=== PATIENT | female | born 1955 | race Caucasian/White ===

== ENCOUNTER 2016-07-14 05:39 | Inpatient (IN) | payer OTHER ==
[~2016-07-14] VITALS: Ht 154.9 cm; Wt 65.7 kg
[~2016-07-14 05:39] MED LIST: CELEBREX100 MG PO; DETROL LA4 MG PO; DORYX50 MG PO; TENORMIN25 MG PO; ULTRAM50 MG PO; ZESTRIL2.5 MG PO; ZOCOR10 MG PO
[2016-07-14 06:12] VITALS: BP 125/64
[2016-07-14] MEDS ORDERED: OMEPRAZOLE40 M1 PO (06:20)
[2016-07-14 14:52] VITALS: BP 123/63
[2016-07-14 20:03] VITALS: BP 128/60
[2016-07-14 23:40] VITALS: BP 106/53
[2016-07-15 04:07] VITALS: BP 110/70
[2016-07-15 07:57] VITALS: BP 112/54
[2016-07-15 11:51] VITALS: BP 118/58
[2016-07-15 15:58] VITALS: BP 113/55
[2016-07-15 19:59] VITALS: BP 135/59
[2016-07-15 23:54] VITALS: BP 102/51
[2016-07-16 07:43] VITALS: BP 117/54
[2016-07-16 12:35] LABS: ADD MIUA? NO; BILIRUBIN NEGATIVE; BLOOD NEGATIVE; COLOR YELLOW ((YELLOW)); GLUCOSE (STRIP) NEGATIVE; KETONES 40; LEUKOCYTES NEGATIVE; NITRITE NEGATIVE; PROTEIN (STRIP) TRACE; UROBILINOGEN 0.2 MG/DL (0.2-1.0)
[2016-07-16 15:05] VITALS: BP 104/55
[2016-07-17 00:45] VITALS: BP 109/53
[2016-07-17 07:36] VITALS: BP 111/57
[2016-07-17 11:11] VITALS: BP 104/59
[2016-07-17] MEDS ORDERED: HYDROCODON-ACE1 EAC7 PO (11:33)
[2016-07-17] MEDS ORDERED: CYCLOBENZAPRINE10 MG PO (11:33)
[2016-07-17] MEDS ORDERED: SENOKOT S,PE1 TABLET PO (14:18)
[2016-07-17] MEDS ORDERED: DITROPAN5 MG PO (14:18)
== END 2016-07-17 13:58 | DRG 460 ==
LOC: 2SOUTH 05:39 → 3EAST 05:39 → 2SOUTH 08:37 → SDC 14:06 → EDSTATUS 14:06 → 2SOUTH 14:11 → 3EAST 14:34 → 2SOUTH 16:16 → 3EAST 07-17 13:58
PROVIDERS: Neurological Surgery
DX: M51.16 Intervertebral disc disorders with radiculopathy, lumbar region (principal); M48.06 Spinal stenosis, lumbar region; M47.26 Other spondylosis with radiculopathy, lumbar region; G97.41 Accidental puncture or laceration of dura during a procedure; Y65.8 Other specified misadventures during surgical and medical care; G89.18 Other acute postprocedural pain; I10 Essential (primary) hypertension; E78.00 Pure hypercholesterolemia, unspecified; M19.90 Unspecified osteoarthritis, unspecified site; G47.30 Sleep apnea, unspecified; Z99.81 Dependence on supplemental oxygen; K21.9 Gastro-esophageal reflux disease without esophagitis; K58.9 Irritable bowel syndrome, unspecified; Z96.643 Presence of artificial hip joint, bilateral; Z87.891 Personal history of nicotine dependence
CPT/HCPCS: 72020; 76000; 81003; 86850; 86900; 86901; 86920; 97530 GP; C1713; J0690; J1100; J1170; J2250; J2270; J2405; J2704; J3010; J3370; J3480; P9045; S0020

== ENCOUNTER 2016-07-17 12:33 | Inpatient (IN) | payer OTHER ==
[~2016-07-17] VITALS: Ht 154.9 cm; Wt 68.1 kg
[~2016-07-17 12:33] MED LIST changes: +CYCLOBENZAPRINE10 MG PO; +HYDROCODON-ACE1 EAC7 PO; +OMEPRAZOLE40 M1 PO
[2016-07-17] MEDS ORDERED: DITROPAN5 MG PO (14:18)
[2016-07-17] MEDS ORDERED: SENOKOT S,PE1 TABLET PO (14:18)
[2016-07-17 14:44] VITALS: BP 115/58
[2016-07-18] VITALS (11 sets, daily range): BP systolic 100–119; BP diastolic 50–70
[2016-07-18 06:15] LABS: ALKALINE PHOSPHATASE 114 IU/L (3-129); ANION GAP 10 MEQ/L (2-14); CHLORIDE 99 MEQ/L (99-109); GFR ESTIMATE (CALCULATED) > 59 mL/min/; GLUCOSE 104 mg/dL (70-99); SAMPLE HEMOLYSIS CHECK 0; SAMPLE ICTERIC CHECK 0; SAMPLE LIPEMIA CHECK 0; SODIUM 137 MEQ/L (136-147); TOTAL BILIRUBIN 0.6 MG/DL (0.0-1.0); UREA NITROGEN (BUN) 9 mg/dL (9-23)
[2016-07-18 06:21] LABS: HEMATOCRIT 22.1 % (36.0-46.0); MCH 26.6 PG (29.0-34.0); MCHC 30.3 G/DL (30.0-36.0); MCV 87.7 FL (83-99); MEAN PLAT.VOLUME 10.2 uM^3 (9.5-12.4); PLATELET COUNT 409 K/uL (156-360); RBC DIS.WIDTH-CV 13.2 % (11.8-14.6); RBC DIS.WIDTH-SD 42.1 % (39-53); RED BLOOD COUNT 2.52 M/uL (3.80-5.20); WHITE BLOOD COUNT 5.9 K/uL (4.1-10.2)
[2016-07-19 05:34] VITALS: BP 142/69
[2016-07-19 05:55] LABS: HEMATOCRIT 29.2 % (36.0-46.0); MCH 27.3 PG (29.0-34.0); MCHC 32.2 G/DL (30.0-36.0); MCV 84.9 FL (83-99); PLATELET COUNT 399 K/uL (156-360); RBC DIS.WIDTH-CV 13.8 % (11.8-14.6); WHITE BLOOD COUNT 6.2 K/uL (4.1-10.2)
[2016-07-19 05:56] LABS: RED BLOOD COUNT 3.44 M/uL (3.80-5.20)
[2016-07-19 15:20] VITALS: BP 115/59
[2016-07-20 05:46] VITALS: BP 126/85
[2016-07-20 09:30] VITALS: BP 124/63
[2016-07-20 15:37] VITALS: BP 147/73
[2016-07-21 06:15] VITALS: BP 122/58
[2016-07-21 15:13] VITALS: BP 130/60
[2016-07-22 05:40] VITALS: BP 165/78
[2016-07-22 06:02] VITALS: BP 134/80
[2016-07-22 15:19] VITALS: BP 107/57
[2016-07-23 05:30] VITALS: BP 118/61
[2016-07-23 05:59] LABS: BASOPHIL COUNT 0.1 K/uL (0-0.1); EOSINOPHIL (%) 18.2 % (0-5); EOSINOPHIL COUNT 1.3 K/uL (0-0.3); HEMATOCRIT 30.3 % (36.0-46.0); IMMATURE GRANULOCYTE (%) 1.9 % (0.0-0.7); IMMATURE GRANULOCYTE COUNT 0.1 K/uL; INSTRUMENT ABS NEUTROPHIL CT 3.3 K/uL; LYMPHOCYTE COUNT 1.8 K/uL (1.0-2.8); MCH 27.2 PG (29.0-34.0); MCHC 31.4 G/DL (30.0-36.0); MCV 86.8 FL (83-99); MEAN PLAT.VOLUME 10.4 uM^3 (9.5-12.4); MONOCYTE (%) 9.5 % (3-12); MONOCYTE COUNT 0.7 K/uL (0-0.8); NEUTROPHIL (%) 45.1 % (45-76); NEUTROPHIL COUNT 3.3 K/uL (1.8-6.4); PLATELET COUNT 424 K/uL (156-360); RBC DIS.WIDTH-CV 14.1 % (11.8-14.6); RBC DIS.WIDTH-SD 44.7 % (39-53); RED BLOOD COUNT 3.49 M/uL (3.80-5.20); WHITE BLOOD COUNT 7.4 K/uL (4.1-10.2)
[2016-07-23 06:22] LABS: ALKALINE PHOSPHATASE 100 IU/L (3-129); ANION GAP 10 MEQ/L (2-14); CHLORIDE 97 MEQ/L (99-109); GFR ESTIMATE (CALCULATED) > 59 mL/min/; GLUCOSE 99 mg/dL (70-99); POTASSIUM 3.7 MEQ/L (3.7-5.4); SAMPLE HEMOLYSIS CHECK 0; SAMPLE ICTERIC CHECK 0; SAMPLE LIPEMIA CHECK 0; SODIUM 135 MEQ/L (136-147); TOTAL BILIRUBIN 0.5 MG/DL (0.0-1.0); UREA NITROGEN (BUN) 11 mg/dL (9-23)
[2016-07-23 15:36] VITALS: BP 125/69
[2016-07-24 05:57] VITALS: BP 141/68
[2016-07-24 15:30] VITALS: BP 114/59
[2016-07-25 05:32] VITALS: BP 112/63
[2016-07-25 16:13] VITALS: BP 123/64
[2016-07-26 05:30] VITALS: BP 100/56
[2016-07-26 15:15] VITALS: BP 103/58
[2016-07-27 05:48] VITALS: BP 114/57
[2016-07-27] MEDS ORDERED: HYDROCODON-ACE1 EAC7 PO (14:40)
[2016-07-27] MEDS ORDERED: POLYETHYLENE GL17 GM PO (14:40)
[2016-07-27] MEDS ORDERED: THERAGRAN1 TABLET PO (14:40)
[2016-07-27] MEDS ORDERED: CYCLOBENZAPRINE10 MG PO (14:40)
[2016-07-27] MEDS ORDERED: VITAMIN D31000 UNI2 PO (14:40)
[2016-07-27] MEDS ORDERED: DOCUSATE SODIU100 MG PO (14:40)
[2016-07-27 14:50] VITALS: BP 102/56
== END 2016-07-28 10:31 | disposition home health service (06) | DRG 560 ==
LOC: 3WEST 12:33
PROVIDERS: Physical Medicine & Rehabilitation Pain Medicine; Psychiatry & Neurology Neurology
PROC: F07M0ZZ Range of Motion and Joint Mobility Treatment of Musculoskeletal System - Whole Body (ICD-10-PCS; principal; 2016-07-17)
PROC: 30233N1 Transfusion of Nonautologous Red Blood Cells into Peripheral Vein, Percutaneous Approach (ICD-10-PCS; 2016-07-18)
DX: Z47.89 Encounter for other orthopedic aftercare (principal); D62 Acute posthemorrhagic anemia; R53.83 Other fatigue; M51.16 Intervertebral disc disorders with radiculopathy, lumbar region; M48.06 Spinal stenosis, lumbar region; M47.26 Other spondylosis with radiculopathy, lumbar region; G89.18 Other acute postprocedural pain; M85.832 Other specified disorders of bone density and structure, left forearm; I10 Essential (primary) hypertension; M19.90 Unspecified osteoarthritis, unspecified site; E78.00 Pure hypercholesterolemia, unspecified; Z60.2 Problems related to living alone; K59.00 Constipation, unspecified; L71.9 Rosacea, unspecified; J02.9 Acute pharyngitis, unspecified; Z98.1 Arthrodesis status; Z96.643 Presence of artificial hip joint, bilateral; Z87.891 Personal history of nicotine dependence; Z88.2 Allergy status to sulfonamides; Z82.49 Family history of ischemic heart disease and other diseases of the circulatory system; Z83.3 Family history of diabetes mellitus; Z84.1 Family history of disorders of kidney and ureter
CPT/HCPCS: 80053; 85025; 85027; 86850; 86900; 86901; 86920; 97110 GO; 97530 GP; J1940; P9016